=== PATIENT | male | born 1960 | race Caucasian/White ===

== ENCOUNTER 2024-07-03 22:49 | Emergency (ER) | payer OTHER, SELFPAY ==
[2024-07-03 22:55] VITALS: BP 173/109
[2024-07-04 00:04] VITALS: BMI 26.1
[2024-07-04 00:14] LABS: % Basophils 0.7 % (0-2); % Eosinophils 1.7 % (0-6); % Immature Granulocytes 0.4 % (0-0.5); % Monocytes 11.3 % (1.7-9.3); % Neutrophils 56.9 % (42.2-75.2); Absolute Basophils 0.1 10^3/uL (0-0.2); Absolute Eosinophils 0.1 10^3/uL (0-0.7); Absolute Lymphocytes 2.3 10^3/uL (1.2-3.4); Absolute Monocytes 0.9 10^3/uL (0.1-0.6); Absolute Neutrophils 4.6 10^3/uL (1.4-6.5); Hematocrit 36.1 % (39.0-52.0); Hemoglobin 12.7 g/dL (13.0-18.0); Mean Corp Hgb Conc. 35.2 g/dL (33.0-37.0); Mean Corpuscular Hgb 29.5 pg (27.0-31.0); Mean Corpuscular Volume 83.8 fL (80.0-94.0); Mean Platelet Volume 10.5 fL (7.4-10.4); Nucleated Red Blood Cells % 0 % (-); Platelet Count 204 10^3/uL (130-400); Red Blood Cell Count 4.31 10^6/uL (4.70-6.10); Red Cell Dist. Width 13.2 % (11.5-14.5); White Blood Cell Count 8.1 10^3/uL (4.8-10.8)
[2024-07-04 00:25] LABS: ALT (SGPT) 21 U/L (0-50); AST (SGOT) 24 U/L (17-59); Alkaline Phosphatase 87 U/L (38-126); Blood Urea Nitrogen 30 mg/dl (9-20); Calcium 8.9 mg/dl (8.4-10.2); Carbon Dioxide 30 mmol/L (22-30); Chloride 103 mmol/L (98-107); Estimated Creatinine Clearance 79 ml/min; Glucose 111 mg/dl (70-99); Potassium 3.3 mmol/L (3.5-5.1); Sodium 141 mmol/L (135-145); Total Bilirubin 0.7 mg/dl (0.2-1.3); Total Protein 6.8 g/dl (6.3-8.2); eGFR > 60.00
--- NOTE | 2024-07-04 01:25 | ED.GENMED ---
History of Present Illness
General
Chief Complaint: Rectal Bleeding
Time Seen by Provider: 07/03/24 23:32
History of Present Illness
History of Present Illness:
63-year-old male presents the emergency department for evaluation of dark red rectal bleeding that occurred this evening. He notes that he has had scant 'hemorrhoidal bleeding' over the course of the week but nothing is high-volume as today. Does
not take blood thinners. Does not use NSAIDs or drink alcohol. Denies any abdominal pain at this time. Denies any lightheadedness.
Review of Systems
Review of Systems
Allergies reviewed?: Yes
All Other Systems: ROS reviewed and negative except as documented in HPI and ROS
Phy Exam
Physical Exam
Physical Exam:
GEN: Well appearing, NAD, WDWN
HEENT: Oral mucosa moist, no scleral icterus
Cardiac: Regular rate
Lung: No respiratory distress, no tachypnea
Abdomen: Soft, grossly nontender
Rectal: Brown stool in the rectal vault, heme positive
MSK: No gross deformity or injuries
Skin: Good color, no pallor or jaundice, no rashes
Neuro: AO x3, moves all extremities freely
Psych: Calm, cooperative
Course
Orders/Labs/Results
Orders:
Orders
07/03/24 23:48
Type+Screen Urgent
Complete Blood Count/With Diff Urgent
Comprehensive Metabolic Panel Urgent
07/04/24 00:29
ABO2 Urgent
BBK Wristband Number:
Associate notified that ABO2 has been ordered: [id number]
Date: 07/04/24
Time: 00:15
[employer]ail Service Lead Merchandiser ID: [id number]
Abnormal Lab Results
07/04/24
00:02
RBC 4.31 L 10^6/uL
(4.70-6.10)
Hgb 12.7 L g/dL
(13.0-18.0)
Hct 36.1 L %
(39.0-52.0)
MPV 10.5 H fL
(7.4-10.4)
Absolute Monos (auto) 0.9 H 10^3/uL
(0.1-0.6)
Monocytes % 11.3 H %
(1.7-9.3)
Potassium 3.3 L mmol/L
(3.5-5.1)
BUN 30 H mg/dl
(9-20)
Glucose 111 H mg/dl
(70-99)
07/04/24 00:02
07/04/24 00:02
Vital Signs
Initial and Last Documented VS:
Initial Vital Signs
Temp Pulse Resp BP Pulse Ox
98.1 F 80 16 173/109 98
07/03/24 22:55 07/03/24 22:55 07/03/24 22:55 07/03/24 22:55 07/03/24 22:55
Last Documented Vital Signs
Temp Pulse Resp BP Pulse Ox
98.1 F 80 16 173/109 98
07/03/24 22:55 07/03/24 22:55 07/03/24 22:55 07/03/24 22:55 07/03/24 22:55
MDM/Problems Addressed
MDM/Problems Addressed:
Patient with no further episodes of bloody stool in the ED. Uncertain baseline for labs to compare however his hemoglobin is 12.7, elevated BUN is suspicious for an upper GI bleed however he is quite adamant this was dark red and not melanotic
stool. Ultimately he is very stable and otherwise healthy thus I do not see any indication to admit for observation. Will start him on empiric PPI and recommend close GI follow-up as an outpatient
*Critical Care Note
Total Time (30-74mins, 75-104mins- exclusive of procedures): Not Applicable
ED Attending Note
-
Portions of this chart may have been created with voice recognition software.� Occasional wrong word or��sound alike� substitutions may have occurred due to the inherent limitations of voice recognition software.
Discharge Plan
Departure
Patient Disposition: Home (Routine Discharge)
Date of Disposition: 07/04/24
Time of Disposition: 01:27
Patient with high blood pressure during this ER visit?: No
Discharge Problem:
GI bleed
Instructions: Bloody Stools, Adult (DC)
Prescriptions:
New
pantoprazole 40 mg tablet,delayed release (DR/EC)
40 mg PO BID Qty: 28 0RF
Referrals:
Anastasia Lindquist MD [Active] - Follow up in 1 week
Activity Restrictions/Additional Instructions:
Return to the ER if bleeding worsens or you develop abdominal pain
Interventions
Interventions:
*Risk Screen - Suicide Last Done: 07/03/24 22:55
*General Assessment Last Done: 07/04/24 00:04
*Neglect/Abuse Screening Last Done: 07/04/24 00:04
*ED COVID-19 Vaccine History Last Done: 07/04/24 00:04
*Nursing Disposition Last Done: 07/04/24 01:59
PD-Cpzwtr-Nqzichphsd Assessment Last Done: 07/04/24 00:04
ED- Cardiac Assessment Last Done: 07/04/24 00:04
ED- Pulmonary Assessment Last Done: 07/04/24 00:04
Discharge Date and Time
Discharge Date/Time: 07/04/24 02:00
Print Language: ICELANDIC
== END 2024-07-04 02:00 | disposition home or self-care (01) ==
LOC: EMR 22:49
PROVIDERS: Physician Assistant; EMERGENCY PHYSICIAN Emergency Medicine
DX: K92.2 Gastrointestinal hemorrhage, unspecified (principal)
CPT/HCPCS: 99283; 80053; 85025; 86850; 86900; 86901